=== PATIENT | female | born 1955 | race Caucasian/White ===

== ENCOUNTER 2016-02-10 12:49 | Outpatient (RCR) | payer MEDICARE ==
[2016-02-09 10:30] VITALS: BP 99/57
[~2016-02-10 12:49] MED LIST: ALDACTONE100 M1 PO; AMITRIPTYLINE H25 M2 PO; AMITRIPTYLINE H25 MG PO; CHLORHEXIDINE PO; COLACE 100100 MG/CAP PO; DOLOPHINE HCL10 MG PO; HCTZ/TRIAMTEREN1 CA2 PO; IRON325 M2 PO; LASIX80 M1 PO; LEADER NATUR1000 MCG PO; METHADONE H10 MG/TAB PO; NOVAPLUS FE TD; POTASSIUM CHLO10 ME6 PO; POTASSIUM CHLO20 ME3 PO; ROBAXIN-750750 MG PO; SLOW-MAG 106 MG1 ECT; VALIUM 5MG T5 MG/TAB PO
== END 2016-05-10 | disposition home or self-care (01) ==
LOC: PT
DX: Z47.1 Aftercare following joint replacement surgery (principal); Z96.642 Presence of left artificial hip joint; M17.0 Bilateral primary osteoarthritis of knee

== ENCOUNTER → 2016-06-27 | Outpatient (CLI) | payer MEDICARE, OTHER ==
[~2016-06-27] MED LIST changes: +AMITRIPTYLINE H75 M1 PO; +LASIX20 M1 PO
[2016-06-27 10:20] VITALS: BP 137/79
== END ==
LOC: AMSURD 10:03
DX: Z01.818 Encounter for other preprocedural examination (principal); E03.4 Atrophy of thyroid (acquired); Z51.81 Encounter for therapeutic drug level monitoring; M15.0 Primary generalized (osteo)arthritis; Z79.899 Other long term (current) drug therapy

== ENCOUNTER 2016-07-14 14:40 | Inpatient (IN) | payer MEDICARE, OTHER ==
[~2016-07-14 14:40] MED LIST changes: -AMITRIPTYLINE H75 M1 PO; -LASIX20 M1 PO
[2016-07-14 21:15] VITALS: BP 130/81
[2016-07-14 23:21] VITALS: BP 131/75
[2016-07-15] MEDS ORDERED: AMITRIPTYLINE H75 M1 PO (02:59)
[2016-07-15 03:06] VITALS: BP 111/65
[2016-07-15] MEDS ORDERED: LASIX20 M1 PO (03:13)
[2016-07-15 06:32] VITALS: BP 105/60
[2016-07-15 18:10] VITALS: BP 122/69
[2016-07-16 06:33] VITALS: BP 112/53
[2016-07-16 18:31] VITALS: BP 111/68
[2016-07-17 06:22] VITALS: BP 109/60
[2016-07-17 18:10] VITALS: BP 127/66
[2016-07-18 06:24] VITALS: BP 115/59
[2016-07-18 17:57] VITALS: BP 149/85
[2016-07-19 06:33] VITALS: BP 107/64
[2016-07-19 18:20] VITALS: BP 121/77
[2016-07-20 06:39] VITALS: BP 119/65
[2016-07-20 18:30] VITALS: BP 121/65
[2016-07-21 06:32] VITALS: BP 126/71
== END 2016-07-21 13:54 | disposition home or self-care (01) | DRG 560 ==
LOC: MED/SURG 14:40
PROVIDERS: ADMIT Family Medicine
DX: Z47.1 Aftercare following joint replacement surgery (principal); Z96.651 Presence of right artificial knee joint; R53.81 Other malaise; F41.9 Anxiety disorder, unspecified; E78.5 Hyperlipidemia, unspecified; I73.00 Raynaud's syndrome without gangrene; K59.00 Constipation, unspecified; D68.2 Hereditary deficiency of other clotting factors; G89.29 Other chronic pain; Z79.891 Long term (current) use of opiate analgesic

== ENCOUNTER 2016-10-04 11:00 | Outpatient (RCR) | payer MEDICARE, OTHER ==
[~2016-10-04 11:00] MED LIST changes: +AMITRIPTYLINE H75 M1 PO; +LASIX20 M1 PO
== END 2016-10-22 | disposition home or self-care (01) ==
LOC: PT
DX: Z47.1 Aftercare following joint replacement surgery (principal); Z96.642 Presence of left artificial hip joint; M17.0 Bilateral primary osteoarthritis of knee

== ENCOUNTER → 2016-10-26 | Outpatient (CLI) | payer MEDICARE, OTHER | LOC: RAD 10:24 | DX: M54.5 Low back pain (principal); M41.9 Scoliosis, unspecified ==

== ENCOUNTER → 2016-12-28 | Outpatient (CLI) | payer MEDICARE, OTHER | LOC: RAD 08:48 | DX: S92.415A Nondisplaced fracture of proximal phalanx of left great toe, initial encounter for closed fracture (principal); X58.XXXA Exposure to other specified factors, initial encounter ==

== ENCOUNTER → 2017-01-25 | Outpatient (CLI) | payer MEDICARE, OTHER ==
[2017-01-01 10:11] VITALS: BP 126/73
== END ==
LOC: LAB 17:25
DX: L03.032 Cellulitis of left toe (principal)

== ENCOUNTER 2017-02-07 06:33 | Outpatient (RCR) | payer MEDICARE, OTHER ==
[~2017-02-07] VITALS: Ht 165.1 cm; Wt 59.1 kg
[2017-02-07 06:41] VITALS: BP 123/77
[2017-02-07] MEDS ORDERED: COLACE100 M1 PO (06:51)
[2017-02-07 07:15] VITALS: BP 112/69
[2017-02-07 14:49] VITALS: BP 112/68
[2017-02-07 15:25] VITALS: BP 109/62
[2017-02-07 22:23] VITALS: BP 129/97
[2017-02-08 07:35] VITALS: BP 141/78
[2017-02-08 14:29] VITALS: BP 106/73
[2017-02-08 15:10] VITALS: BP 90/50
[2017-02-08 22:25] VITALS: BP 109/69
[2017-02-08 23:00] VITALS: BP 107/56
[2017-02-09 06:25] VITALS: BP 157/90
[2017-02-09 06:55] VITALS: BP 154/89
[2017-02-09 14:19] VITALS: BP 122/78
[2017-02-09 15:08] VITALS: BP 101/60
[2017-02-09 22:22] VITALS: BP 110/64
[2017-02-09 22:55] VITALS: BP 113/71
[2017-02-10 06:20] VITALS: BP 158/89
--- NOTE | 2017-02-10 06:42 | NUR ---
PATIENT REQUESTS A SNACK OF PEANUT BUTTER AND ALEIDA CRACKERS, AND IT IS PROVIDED.
[2017-02-10 07:00] VITALS: BP 89/55
[2017-02-10 14:26] VITALS: BP 135/100
[2017-02-10 15:01] VITALS: BP 145/68
[2017-02-10 22:20] VITALS: BP 127/86
[2017-02-10 22:50] VITALS: BP 124/85
[2017-02-11 06:20] VITALS: BP 127/77
[2017-02-11 06:50] VITALS: BP 147/67
[2017-02-11 14:30] VITALS: BP 122/58
[2017-02-11 15:10] VITALS: BP 119/66
[2017-02-11 22:30] VITALS: BP 96/73
[2017-02-11 23:04] VITALS: BP 114/76
[2017-02-12 06:15] VITALS: BP 147/91
[2017-02-12 06:57] VITALS: BP 98/54
[2017-02-12 14:30] VITALS: BP 112/70; BP 156/83
[2017-02-12 22:30] VITALS: BP 121/78
[2017-02-12 23:05] VITALS: BP 127/79
[2017-02-13 08:36] VITALS: BP 124/90
[2017-02-13 08:37] VITALS: BP 112/78
[2017-02-13 14:33] VITALS: BP 141/88
[2017-02-13 15:05] VITALS: BP 138/95
[2017-02-13 22:50] VITALS: BP 115/74
[2017-02-13 23:25] VITALS: BP 113/71
[2017-02-14 06:20] VITALS: BP 113/84
[2017-02-14 06:50] VITALS: BP 123/87
[2017-02-14 14:18] VITALS: BP 128/89
[2017-02-14 14:57] VITALS: BP 128/88
[2017-02-14 22:10] VITALS: BP 114/48
[2017-02-14 22:52] VITALS: BP 93/35
[2017-02-15 06:20] VITALS: BP 114/71
[2017-02-15 06:53] VITALS: BP 111/55
[2017-02-15 14:20] VITALS: BP 114/81
[2017-02-15 22:30] VITALS: BP 119/80
[2017-02-15 23:00] VITALS: BP 122/69
[2017-02-16 06:22] VITALS: BP 104/70
[2017-02-16 07:03] VITALS: BP 98/66
[2017-02-16 14:28] VITALS: BP 122/49
[2017-02-16 22:25] VITALS: BP 140/91
[2017-02-16 22:58] VITALS: BP 141/83
[2017-02-17 07:32] VITALS: BP 146/98
[2017-02-17 07:50] VITALS: BP 110/73
[2017-02-17 14:26] VITALS: BP 134/101
[2017-02-17 15:00] VITALS: BP 126/78
[2017-02-17 22:25] VITALS: BP 146/96
[2017-02-17 23:05] VITALS: BP 100/75
[2017-02-18 06:40] VITALS: BP 115/70
[2017-02-18 07:24] VITALS: BP 118/52
[2017-02-18 13:24] VITALS: BP 116/68
[2017-02-18 22:30] VITALS: BP 104/70
[2017-02-18 23:02] VITALS: BP 101/64
[2017-02-19 06:22] VITALS: BP 119/69
[2017-02-19 06:59] VITALS: BP 117/63
[2017-02-19 14:32] VITALS: BP 138/91
[2017-02-19 15:05] VITALS: BP 110/78
[2017-02-19 22:40] VITALS: BP 139/73
[2017-02-20 06:15] VITALS: BP 126/74
[2017-02-20 07:01] VITALS: BP 117/70
[2017-02-20 14:28] VITALS: BP 137/92
[2017-02-20 15:05] VITALS: BP 108/70
[2017-02-20 22:36] VITALS: BP 110/70
[2017-02-20 23:05] VITALS: BP 98/66
[2017-02-21 06:20] VITALS: BP 127/77
--- NOTE | 2017-02-21 06:25 | NUR ---
PATIENT INDICATES THIS IS HER LAST DOSE UNTIL SHE FOLLOWS UP WITH DR. RODRIGUEZ ON SUNDAY. PATIENT STATES SHE WOULD LIKE HER PICC LEFT IN UNTIL THAT MEETING, AND DR. RODRIGUEZ WILL DECIDE IF HE NEEDS TO CONTINUE THE ANTIBIOTICS AGAIN. PATIENT INSTRUCTED TO COME OVER AND DISCUSS DR. RODRIGUEZ'S RECOMMENDATIONS WITH THE OUTPATIENT NURSE THAT DAY, AND A PLAN OF CARE WILL BE DEVELOPED, WELL A SCHEDULE FOR FUTURE DRESSING CHANGES/FLUSHES IF NEEDED, OR IF THE PICC LINE WILL NEED TO BE DC'D. PATIENT STATES SHE HAS ALSO NOT BEEN FOLLOWING THE PEROXIDE DRESSING CHANGES PER DR. RODRIGUEZ'S RECOMMENDATIONS, AND ACTUALLY LETTING THE WOUND BED DRY OUT. PATIENT REPORTS SHE HAS GOTTEN MUCH BETTER WOUND HEALING RESULTS FROM THIS METHOD.
[2017-02-21 06:50] VITALS: BP 120/70
[2017-02-23 14:30] VITALS: BP 127/76
== END 2017-02-23 16:00 | disposition home or self-care (01) ==
LOC: AMSURD 06:33
DX: L03.90 Cellulitis, unspecified (principal); Z45.2 Encounter for adjustment and management of vascular access device; Z48.00 Encounter for change or removal of nonsurgical wound dressing
CPT/HCPCS: J1644; J2185

== ENCOUNTER → 2017-06-19 | Outpatient (CLI) | payer MEDICARE, OTHER ==
[~2017-06-19] MED LIST changes: +COLACE100 M1 PO; +FENTANYL1 EAC3 TD
== END ==
LOC: PT 11:00
DX: M16.11 Unilateral primary osteoarthritis, right hip (principal)

== ENCOUNTER → 2017-06-25 | Outpatient (CLI) | payer MEDICARE, OTHER ==
[~2017-06-25] VITALS: Ht 160 cm; Wt 65.9 kg
[2017-06-25 11:50] LABS: EOS # 0.1 (0.04-0.40); EOS % 1.7 % (1.0-5.0); HEMATOCRIT 38.1 % (37.0-47.0); HEMOGLOBIN 11.8 g/dL (12.5-16.0); MEAN CELL VOLUME 91 fl (78-100); MEAN CORPUSCULAR HEMOGLOBIN 28 pg (27-31); MEAN CORPUSCULAR HGB CONC 31 g/dL (33-37); MEAN PLATELET VOLUME 8.5 fl (7.4-10.4); MONO # 0.5 (0.20-0.80); NEU # 3.6 (1.40-6.50); PLATELET COUNT 302 K/mm3 (130-400); RED BLOOD COUNT 4.18 M/mm3 (4.10-5.30); RED CELL DISTRIBUTION WIDTH 12.9 % (11.5-14.5); WHITE BLOOD COUNT 5.2 K/mm3 (4.8-10.8)
[2017-06-25 12:06] LABS: ALBUMIN 3.5 g/dL (3.5-5.0); BUN/CREATININE RATIO 21.3 (6.0-26.0); CALCIUM 8.8 mg/dL (8.4-10.2); POTASSIUM 4.4 mmol/L (3.6-5.0); TOTAL BILIRUBIN 0.2 mg/dL (0.2-1.3); TOTAL PROTEIN 6.7 g/dL (6.3-8.2)
[2017-06-25 12:08] LABS: PARTIAL THROMBOPLASTIN TIME 25.5 SECONDS (21.0-32.0); PROTHROMBIN TIME 10.2 SECONDS (9.0-12.0)
[2017-06-25 12:14] LABS: URINE APPEARANCE HAZY; URINE BILIRUBIN NEGATIVE (NEGATIVE); URINE BLOOD NEGATIVE (NEGATIVE); URINE COLOR YELLOW; URINE GLUCOSE NEGATIVE (NEGATIVE); URINE KETONE NEGATIVE (NEGATIVE); URINE LEUKOCYTE ESTERASE 1+ (NEGATIVE); URINE NITRATE NEGATIVE (NEGATIVE); URINE PROTEIN(semi-quant) TRACE mg/dL (NEGATIVE); URINE UROBILINOGEN NORMAL (NORMAL)
[2017-06-25 12:28] VITALS: BP 120/72
== END ==
LOC: AMSURD 11:24
PROVIDERS: Internal Medicine
DX: Z01.818 Encounter for other preprocedural examination (principal); M15.0 Primary generalized (osteo)arthritis

== ENCOUNTER → 2017-07-02 | Outpatient (CLI) | payer MEDICARE, OTHER ==
[2017-06-25 12:28] VITALS: BP 120/72
[2017-07-02 16:52] LABS: URINE COLOR YELLOW
[2017-07-02 16:53] LABS: PH-URINE 5.5 (5.0 - 8.0); URINE APPEARANCE HAZY; URINE BILIRUBIN NEGATIVE (NEGATIVE); URINE BLOOD NEGATIVE (NEGATIVE); URINE GLUCOSE NEGATIVE (NEGATIVE); URINE KETONE 1+ (NEGATIVE); URINE LEUKOCYTE ESTERASE 1+ (NEGATIVE); URINE NITRATE NEGATIVE (NEGATIVE); URINE PROTEIN(semi-quant) TRACE mg/dL (NEGATIVE); URINE UROBILINOGEN NORMAL (NORMAL)
== END ==
LOC: LAB 15:42
PROVIDERS: Internal Medicine
DX: N30.00 Acute cystitis without hematuria (principal)

== ENCOUNTER → 2017-07-06 | Outpatient (CLI) | payer MEDICARE, OTHER ==
[2017-06-25 12:28] VITALS: BP 120/72
[2017-07-06 12:05] LABS: URINE APPEARANCE CLEAR; URINE COLOR YELLOW
[2017-07-06 12:06] LABS: URINE BILIRUBIN NEGATIVE (NEGATIVE); URINE GLUCOSE NEGATIVE (NEGATIVE); URINE KETONE NEGATIVE (NEGATIVE); URINE PROTEIN(semi-quant) TRACE mg/dL (NEGATIVE)
[2017-07-06 12:07] LABS: URINE BLOOD NEGATIVE (NEGATIVE); URINE LEUKOCYTE ESTERASE 1+ (NEGATIVE); URINE NITRATE NEGATIVE (NEGATIVE); URINE UROBILINOGEN NORMAL (NORMAL)
== END ==
LOC: LAB 10:40
PROVIDERS: Internal Medicine
DX: N39.0 Urinary tract infection, site not specified (principal); Z88.6 Allergy status to analgesic agent; Z88.1 Allergy status to other antibiotic agents

== ENCOUNTER 2017-09-17 11:00 | Outpatient (RCR) | payer MEDICARE, OTHER ==
[2017-06-25 12:28] VITALS: BP 120/72
== END 2017-10-15 | disposition home or self-care (01) ==
LOC: PT
DX: Z47.1 Aftercare following joint replacement surgery (principal); Z96.641 Presence of right artificial hip joint
CPT/HCPCS: G8978-GP; G8979-GP

== ENCOUNTER → 2018-01-10 | Outpatient (CLI) | payer MEDICARE, OTHER ==
[2017-06-25 12:28] VITALS: BP 120/72
[2018-01-10 12:45] LABS: ALBUMIN 4.3 g/dL (3.5-5.0); POTASSIUM 4.5 mmol/L (3.6-5.0); TOTAL BILIRUBIN 0.6 mg/dL (0.2-1.3); TOTAL PROTEIN 7.3 g/dL (6.3-8.2)
[2018-01-10 13:22] LABS: EOS # 0.1 (0.04-0.40); EOS % 2.5 % (1.0-5.0); HEMATOCRIT 40.9 % (37.0-47.0); LYMPH# 1.2 (1.50-4.00); MEAN CELL VOLUME 89 fl (78-100); MEAN CORPUSCULAR HEMOGLOBIN 28 pg (27-31); MEAN CORPUSCULAR HGB CONC 32 g/dL (33-37); MONO # 0.4 (0.20-0.80); NEU # 3.4 (1.40-6.50); PLATELET COUNT 294 K/mm3 (130-400); RED BLOOD COUNT 4.58 M/mm3 (4.10-5.30); RED CELL DISTRIBUTION WIDTH 13.1 % (11.5-14.5); WHITE BLOOD COUNT 5.1 K/mm3 (4.8-10.8)
[2018-01-10 14:28] LABS: ERYTHROCYTE SEDIMENTATION RATE 12 mm/hr (0-30)
== END ==
LOC: LAB 11:59
PROVIDERS: Internal Medicine
DX: E78.5 Hyperlipidemia, unspecified (principal); J84.10 Pulmonary fibrosis, unspecified; M85.80 Other specified disorders of bone density and structure, unspecified site

== ENCOUNTER → 2018-01-24 | Outpatient (CLI) | payer MEDICARE, OTHER ==
[2017-06-25 12:28] VITALS: BP 120/72
== END ==
LOC: MAMMO 08:26
DX: M81.0 Age-related osteoporosis without current pathological fracture (principal); Z12.31 Encounter for screening mammogram for malignant neoplasm of breast

== ENCOUNTER → 2018-01-24 | Outpatient (CLI) | payer MEDICARE, OTHER ==
[2017-06-25 12:28] VITALS: BP 120/72
== END ==
LOC: RAD 08:28 → MAMMO 09:15
DX: Z13.820 Encounter for screening for osteoporosis (principal)

== ENCOUNTER → 2018-05-30 | Outpatient (CLI) | payer MEDICARE, OTHER ==
[2017-06-25 12:28] VITALS: BP 120/72
[2018-05-30 11:52] LABS: EOS % 0.4 % (1.0-5.0); HEMATOCRIT 39.5 % (37.0-47.0); HEMOGLOBIN 12.3 g/dL (12.5-16.0); LYMPH# 0.9 (1.50-4.00); MEAN CELL VOLUME 88 fl (78-100); MEAN CORPUSCULAR HEMOGLOBIN 27 pg (27-31); MEAN CORPUSCULAR HGB CONC 31 g/dL (33-37); MEAN PLATELET VOLUME 8.3 fl (7.4-10.4); MONO # 0.3 (0.20-0.80); NEU # 3.7 (1.40-6.50); PLATELET COUNT 308 K/mm3 (130-400); RED BLOOD COUNT 4.49 M/mm3 (4.10-5.30); RED CELL DISTRIBUTION WIDTH 12.3 % (11.5-14.5)
[2018-05-30 12:23] LABS: ALBUMIN 3.9 g/dL (3.5-5.0); CALCIUM 9.1 mg/dL (8.4-10.2); POTASSIUM 4.4 mmol/L (3.6-5.0); TOTAL BILIRUBIN 0.4 mg/dL (0.2-1.3); TOTAL PROTEIN 7.1 g/dL (6.3-8.2)
== END ==
LOC: LAB 11:33
PROVIDERS: Internal Medicine
DX: E78.5 Hyperlipidemia, unspecified (principal); M85.80 Other specified disorders of bone density and structure, unspecified site

== ENCOUNTER → 2018-06-20 | Outpatient (CLI) | payer MEDICARE, OTHER ==
[2017-06-25 12:28] VITALS: BP 120/72
== END ==
LOC: RAD 10:27
DX: M25.511 Pain in right shoulder (principal)

== ENCOUNTER → 2018-08-05 | Outpatient (CLI) | payer MEDICARE, OTHER ==
[2017-06-25 12:28] VITALS: BP 120/72
== END ==
LOC: LAB 14:45
DX: S81.802A Unspecified open wound, left lower leg, initial encounter (principal)

== ENCOUNTER → 2018-08-19 | Outpatient (CLI) | payer MEDICARE, OTHER ==
[2017-06-25 12:28] VITALS: BP 120/72
== END ==
LOC: LAB 13:32
DX: S81.802A Unspecified open wound, left lower leg, initial encounter (principal)

== ENCOUNTER 2018-09-23 11:30 | Outpatient (RCR) | payer MEDICARE, OTHER ==
[2017-06-25 12:28] VITALS: BP 120/72
== END 2018-11-03 | disposition still patient (30) ==
LOC: PT
DX: S81.802A Unspecified open wound, left lower leg, initial encounter (principal)

== ENCOUNTER → 2018-09-26 | Outpatient (CLI) | payer MEDICARE, OTHER ==
[2017-06-25 12:28] VITALS: BP 120/72
== END ==
LOC: RAD 13:33
DX: M19.012 Primary osteoarthritis, left shoulder (principal)

== ENCOUNTER → 2019-03-31 | Outpatient (CLI) | payer MEDICARE, OTHER ==
[2017-06-25 12:28] VITALS: BP 120/72
[2019-03-31 12:32] LABS: EOS # 0.1 (0.04-0.40); EOS % 2.4 % (1.0-5.0); HEMATOCRIT 40.7 % (37.0-47.0); HEMOGLOBIN 12.6 g/dL (12.5-16.0); LYMPH# 1.6 (1.50-4.00); MEAN CELL VOLUME 86 fl (78-100); MEAN CORPUSCULAR HEMOGLOBIN 27 pg (27-31); MEAN CORPUSCULAR HGB CONC 31 g/dL (33-37); MEAN PLATELET VOLUME 8.3 fl (7.4-10.4); MONO # 0.5 (0.20-0.80); NEU # 2.8 (1.40-6.50); PLATELET COUNT 321 K/mm3 (130-400); RED BLOOD COUNT 4.72 M/mm3 (4.10-5.30)
[2019-03-31 13:43] LABS: ERYTHROCYTE SEDIMENTATION RATE 23 mm/hr (0-30)
[2019-03-31 13:44] LABS: ALBUMIN 4.2 g/dL (3.4-4.8); POTASSIUM 3.2 mmol/L (3.5-5.1)
[2019-03-31 13:46] LABS: CALCIUM 9.1 mg/dL (8.3-10.5)
[2019-03-31 13:47] LABS: TOTAL PROTEIN 7.6 g/dL (6.2-8.1)
[2019-03-31 13:49] LABS: TOTAL BILIRUBIN 0.3 mg/dL (0.2-1.2)
== END ==
LOC: LAB 12:13
PROVIDERS: Internal Medicine
DX: E46 Unspecified protein-calorie malnutrition (principal); L03.90 Cellulitis, unspecified; L97.929 Non-pressure chronic ulcer of unspecified part of left lower leg with unspecified severity; E74.39 Other disorders of intestinal carbohydrate absorption; R73.02 Impaired glucose tolerance (oral)

== ENCOUNTER → 2019-04-29 | Outpatient (CLI) | payer MEDICARE, OTHER ==
[2017-06-25 12:28] VITALS: BP 120/72
== END ==
LOC: LAB 16:54
PROVIDERS: Internal Medicine
DX: L97.929 Non-pressure chronic ulcer of unspecified part of left lower leg with unspecified severity (principal); L03.90 Cellulitis, unspecified; K90.9 Intestinal malabsorption, unspecified

== ENCOUNTER → 2019-05-27 | Outpatient (CLI) | payer MEDICARE, OTHER ==
[2017-06-25 12:28] VITALS: BP 120/72
== END ==
LOC: RAD 16:09
DX: M41.86 Other forms of scoliosis, lumbar region (principal); M47.816 Spondylosis without myelopathy or radiculopathy, lumbar region

== ENCOUNTER 2019-07-04 15:00 | Outpatient (RCR) | payer MEDICARE, OTHER ==
[2017-06-25 12:28] VITALS: BP 120/72
== END 2019-09-28 | disposition still patient (30) ==
LOC: PT
DX: M54.5 Low back pain (principal); M25.512 Pain in left shoulder

== ENCOUNTER 2020-10-27 14:09 | Emergency (ER) | payer MEDICARE, OTHER ==
[~2020-10-27 14:09] MED LIST changes: -CELEBREX 200MG200 MG PO; -CHLORHEXIDINE FL1 ML; -DOCUSATE SODIUM1 TA3 PO; -GENTAMICIN SULFA TP; -MAGNESIUM CHLOR70 MG PO; -METHADONE HYDRO10 MG PO; -ROBAXIN 75750 MG/TA1 PO; -TRIAMTERENE AND1 CAP PO
[2020-10-27 14:54] LABS: HEMATOCRIT 34.6 % (37.0-47.0); HEMOGLOBIN 11.3 g/dL (12.5-16.0); MEAN CELL VOLUME 82 fl (78-100); MEAN CORPUSCULAR HEMOGLOBIN 27 pg (27-31); MEAN CORPUSCULAR HGB CONC 33 g/dL (33-37); MEAN PLATELET VOLUME 9.3 fl (7.4-10.4); PLATELET COUNT 191 K/mm3 (130-400); RED BLOOD COUNT 4.21 M/mm3 (4.10-5.30); RED CELL DISTRIBUTION WIDTH 12.9 % (11.5-14.5); WHITE BLOOD COUNT 2.8 K/mm3 (4.8-10.8)
[2020-10-27 15:06] LABS: ALBUMIN 3.1 g/dL (3.4-4.8); POTASSIUM 3.5 mmol/L (3.5-5.1); SODIUM 132 mmol/L (136-145)
[2020-10-27 15:07] LABS: CALCIUM 7.8 mg/dL (8.3-10.5)
[2020-10-27 15:08] LABS: GLUCOSE 98 mg/dL (65-105); TOTAL PROTEIN 6.3 g/dL (6.2-8.1)
[2020-10-27 15:10] LABS: CARBON DIOXIDE 27 mmol/L (23-31); TOTAL BILIRUBIN 0.5 mg/dL (0.2-1.2)
[2020-10-27 15:14] LABS: AST-SGOT 52 U/L (5-34)
[2020-10-27 15:15] LABS: ALT/SGPT 28 U/L (0-55)
[2020-10-27 15:32] LABS: TROPONIN-I < 0.03 ng/mL (<0.030)
[2020-10-27 15:46] LABS: LYMPHOCYTE 16 % (20-51); MONOCYTE 9 % (3-10); NEUTROPHILS 75 % (42-75)
[2020-10-27] MEDS ORDERED: AMITRIPTYLINE H25 M2 PO (16:35)
[2020-10-27] MEDS ORDERED: CELEBREX 200MG200 MG PO (16:38)
[2020-10-27] MEDS ORDERED: CHLORHEXIDINE FL1 ML (16:39)
[2020-10-27] MEDS ORDERED: VALIUM 5MG T5 MG/TAB PO (16:40)
[2020-10-27] MEDS ORDERED: GENTAMICIN SULFA TP (16:40)
[2020-10-27] MEDS ORDERED: MAGNESIUM CHLOR70 MG PO (16:41)
[2020-10-27] MEDS ORDERED: ROBAXIN 75750 MG/TA1 PO (16:42)
[2020-10-27] MEDS ORDERED: METHADONE HYDRO10 MG PO (16:42)
[2020-10-27] MEDS ORDERED: DOCUSATE SODIUM1 TA3 PO (16:43)
[2020-10-27] MEDS ORDERED: ALDACTONE100 M1 PO (16:44)
[2020-10-27] MEDS ORDERED: TRIAMTERENE AND1 CAP PO (16:45)
[2020-10-27 17:23] VITALS: BP 116/72
== END 2020-10-27 17:35 | disposition home or self-care (01) ==
LOC: ED 14:09
PROVIDERS: Physician Assistant
DX: U07.1 COVID-19 (principal); J12.82 Pneumonia due to coronavirus disease 2019; D66 Hereditary factor VIII deficiency; F41.9 Anxiety disorder, unspecified; I10 Essential (primary) hypertension; G89.4 Chronic pain syndrome; Z88.6 Allergy status to analgesic agent; Z88.1 Allergy status to other antibiotic agents; Z79.899 Other long term (current) drug therapy
CPT/HCPCS: J0456; J1100; J7050

== ENCOUNTER → 2020-10-27 | Outpatient (CLI) | payer MEDICARE, OTHER ==
[~2020-10-27] MED LIST changes: +CELEBREX 200MG200 MG PO; +CHLORHEXIDINE FL1 ML; +DOCUSATE SODIUM1 TA3 PO; +GENTAMICIN SULFA TP; +MAGNESIUM CHLOR70 MG PO; +METHADONE HYDRO10 MG PO; +ROBAXIN 75750 MG/TA1 PO; +TRIAMTERENE AND1 CAP PO
== END ==
LOC: LAB 11:42
DX: U07.1 COVID-19 (principal)

== ENCOUNTER → 2020-12-24 | Outpatient (CLI) | payer MEDICARE, OTHER ==
[~2020-12-24] MED LIST changes: +CELEBREX 200MG200 MG PO; +CHLORHEXIDINE FL1 ML; +DOCUSATE SODIUM1 TA3 PO; +GENTAMICIN SULFA TP; +MAGNESIUM CHLOR70 MG PO; +METHADONE HYDRO10 MG PO; +ROBAXIN 75750 MG/TA1 PO; +TRIAMTERENE AND1 CAP PO
== END ==
LOC: VAS 11:36
DX: R22.41 Localized swelling, mass and lump, right lower limb (principal)

== ENCOUNTER → 2021-03-04 | Outpatient (CLI) | payer MEDICARE, OTHER ==
[2021-03-04 15:19] LABS: BASO # 0.03 K/mm3 (0.02-0.10); EOS # 0.04 K/mm3 (0.04-0.40); EOS % 0.7 % (1.0-5.0); HEMOGLOBIN 12.2 g/dL (12.5-16.0); LYMPH# 1.36 K/mm3 (1.50-4.00); MEAN CELL VOLUME 86 fl (78-100); MEAN CORPUSCULAR HEMOGLOBIN 28 pg (27-31); MEAN CORPUSCULAR HGB CONC 32 g/dL (33-37); MEAN PLATELET VOLUME 8.6 fl (7.4-10.4); MONO # 0.45 K/mm3 (0.20-0.80); NEU # 3.74 K/mm3 (1.40-6.50); PLATELET COUNT 303 K/mm3 (130-400); RED BLOOD COUNT 4.44 M/mm3 (4.10-5.30); RED CELL DISTRIBUTION WIDTH 12.5 % (11.5-14.5); WHITE BLOOD COUNT 5.6 K/mm3 (4.8-10.8)
[2021-03-04 17:25] LABS: ERYTHROCYTE SEDIMENTATION RATE 33 mm/hr (0-30)
== END ==
LOC: LAB 14:57
PROVIDERS: Internal Medicine
DX: F41.9 Anxiety disorder, unspecified (principal); K90.9 Intestinal malabsorption, unspecified; E78.2 Mixed hyperlipidemia

== ENCOUNTER → 2021-03-14 | Outpatient (CLI) | payer MEDICARE, OTHER ==
[2021-03-14 15:55] LABS: BASO # 0.01 K/mm3 (0.02-0.10); EOS # 0.07 K/mm3 (0.04-0.40); HEMATOCRIT 36.5 % (37.0-47.0); HEMOGLOBIN 11.2 g/dL (12.5-16.0); LYMPH# 1.24 K/mm3 (1.50-4.00); MEAN CELL VOLUME 87 fl (78-100); MEAN CORPUSCULAR HEMOGLOBIN 27 pg (27-31); MEAN CORPUSCULAR HGB CONC 31 g/dL (33-37); MEAN PLATELET VOLUME 8.1 fl (7.4-10.4); MONO # 0.38 K/mm3 (0.20-0.80); NEU # 5.11 K/mm3 (1.40-6.50); PLATELET COUNT 267 K/mm3 (130-400); RED BLOOD COUNT 4.21 M/mm3 (4.10-5.30); RED CELL DISTRIBUTION WIDTH 13.1 % (11.5-14.5); WHITE BLOOD COUNT 6.8 K/mm3 (4.8-10.8)
[2021-03-14 16:08] LABS: POTASSIUM 4.2 mmol/L (3.5-5.1)
[2021-03-14 16:09] LABS: CALCIUM 8.7 mg/dL (8.3-10.5)
[2021-03-14 16:10] LABS: TOTAL PROTEIN 7.2 g/dL (6.2-8.1)
[2021-03-14 16:12] LABS: TOTAL BILIRUBIN 0.2 mg/dL (0.2-1.2)
[2021-03-14 16:13] LABS: PARTIAL THROMBOPLASTIN TIME 24.1 SECONDS (21.0-32.0); PROTHROMBIN TIME 11.3 SECONDS (9.0-12.0)
== END ==
LOC: LAB 15:36
PROVIDERS: Internal Medicine
DX: Z01.818 Encounter for other preprocedural examination (principal)

== ENCOUNTER → 2021-10-03 | Outpatient (CLI) | payer MEDICARE, OTHER ==
[2021-10-03 10:27] LABS: BASO # 0.03 K/mm3 (0.02-0.10); EOS # 0.16 K/mm3 (0.04-0.40); EOS % 3.1 % (1.0-5.0); HEMATOCRIT 34.6 % (37.0-47.0); HEMOGLOBIN 10.8 g/dL (12.5-16.0); LYMPH# 1.38 K/mm3 (1.50-4.00); MEAN CELL VOLUME 87 fl (78-100); MEAN CORPUSCULAR HEMOGLOBIN 27 pg (27-31); MEAN CORPUSCULAR HGB CONC 31 g/dL (33-37); MEAN PLATELET VOLUME 8.5 fl (7.4-10.4); MONO # 0.43 K/mm3 (0.20-0.80); NEU # 3.18 K/mm3 (1.40-6.50); PLATELET COUNT 229 K/mm3 (130-400); RED BLOOD COUNT 3.97 M/mm3 (4.10-5.30); RED CELL DISTRIBUTION WIDTH 13.2 % (11.5-14.5); WHITE BLOOD COUNT 5.2 K/mm3 (4.8-10.8)
[2021-10-03 10:32] LABS: ALBUMIN 3.8 g/dL (3.4-4.8); POTASSIUM 3.8 mmol/L (3.5-5.1)
[2021-10-03 10:33] LABS: CALCIUM 8.8 mg/dL (8.3-10.5)
[2021-10-03 10:34] LABS: TOTAL PROTEIN 6.4 g/dL (6.2-8.1)
[2021-10-03 10:36] LABS: TOTAL BILIRUBIN 0.3 mg/dL (0.2-1.2)
[2021-10-03 11:36] LABS: ERYTHROCYTE SEDIMENTATION RATE 25 mm/hr (0-30)
== END ==
LOC: LAB 10:01
PROVIDERS: Internal Medicine
DX: Z12.11 Encounter for screening for malignant neoplasm of colon (principal); Z12.31 Encounter for screening mammogram for malignant neoplasm of breast; K90.9 Intestinal malabsorption, unspecified; E78.2 Mixed hyperlipidemia; F41.9 Anxiety disorder, unspecified; M19.019 Primary osteoarthritis, unspecified shoulder; G56.02 Carpal tunnel syndrome, left upper limb; M41.86 Other forms of scoliosis, lumbar region; M47.816 Spondylosis without myelopathy or radiculopathy, lumbar region; G89.29 Other chronic pain; G47.01 Insomnia due to medical condition; I35.0 Nonrheumatic aortic (valve) stenosis

== ENCOUNTER → 2021-10-12 | Outpatient (CLI) | payer MEDICARE, OTHER | LOC: MAMMO 12:09 | DX: Z12.31 Encounter for screening mammogram for malignant neoplasm of breast (principal) ==

== ENCOUNTER → 2021-10-12 | Outpatient (CLI) | payer MEDICARE, OTHER | LOC: VAS 12:08 → RAD 13:00 → VAS 13:00 | DX: I35.0 Nonrheumatic aortic (valve) stenosis (principal) ==

== ENCOUNTER → 2021-10-31 | Outpatient (CLI) | payer MEDICARE, OTHER ==
[2021-10-31 19:34] LABS: BASO # 0.02 K/mm3 (0.02-0.10); EOS # 0.24 K/mm3 (0.04-0.40); EOS % 4.5 % (1.0-5.0); HEMATOCRIT 35.7 % (37.0-47.0); HEMOGLOBIN 11.2 g/dL (12.5-16.0); LYMPH# 1.99 K/mm3 (1.50-4.00); MEAN CELL VOLUME 85 fl (78-100); MEAN CORPUSCULAR HEMOGLOBIN 27 pg (27-31); MEAN CORPUSCULAR HGB CONC 31 g/dL (33-37); MEAN PLATELET VOLUME 8.6 fl (7.4-10.4); MONO # 0.56 K/mm3 (0.20-0.80); NEU # 2.56 K/mm3 (1.40-6.50); PLATELET COUNT 265 K/mm3 (130-400); RED BLOOD COUNT 4.18 M/mm3 (4.10-5.30); RED CELL DISTRIBUTION WIDTH 12.7 % (11.5-14.5); WHITE BLOOD COUNT 5.4 K/mm3 (4.8-10.8)
[2021-10-31 19:43] LABS: ALBUMIN 3.9 g/dL (3.4-4.8); POTASSIUM 3.8 mmol/L (3.5-5.1)
[2021-10-31 19:44] LABS: CALCIUM 9.1 mg/dL (8.3-10.5)
[2021-10-31 19:47] LABS: TOTAL BILIRUBIN 0.3 mg/dL (0.2-1.2)
[2021-10-31 20:13] LABS: TOTAL PROTEIN 7.5 g/dL (6.2-8.1)
[2021-10-31 20:36] LABS: D-DIMER 1.29 mg/L FEU (0.15-0.50)
== END ==
LOC: LAB 19:21
PROVIDERS: Nurse Practitioner Family
DX: M79.89 Other specified soft tissue disorders (principal)

== ENCOUNTER 2022-02-15 13:55 | Outpatient (RCR) | payer MEDICARE, OTHER | END 2022-03-15 | disposition still patient (30) | LOC: PT | DX: Z96.611 Presence of right artificial shoulder joint (principal) ==

== ENCOUNTER → 2023-02-09 | Outpatient (CLI) | payer MEDICARE, OTHER ==
[2023-02-09 17:58] LABS: URINE APPEARANCE HAZY; URINE BILIRUBIN NEGATIVE (NEGATIVE); URINE BLOOD TRACE (NEGATIVE); URINE COLOR YELLOW; URINE GLUCOSE NEGATIVE (NEGATIVE); URINE KETONE NEGATIVE (NEGATIVE); URINE LEUKOCYTE ESTERASE 2+ (NEGATIVE); URINE NITRATE NEGATIVE (NEGATIVE); URINE PROTEIN(semi-quant) TRACE (NEGATIVE); URINE UROBILINOGEN NORMAL (NORMAL)
[2023-02-09 17:59] LABS: URINE MUCUS PRESENT (NOT PRESENT)
[2023-02-09 18:00] LABS: URINE WBC 31-50 /hpf (0-3)
== END ==
LOC: LAB 17:29
PROVIDERS: Internal Medicine
DX: Z01.818 Encounter for other preprocedural examination (principal); K90.9 Intestinal malabsorption, unspecified; M54.16 Radiculopathy, lumbar region; M48.062 Spinal stenosis, lumbar region with neurogenic claudication

== ENCOUNTER → 2023-02-09 | Outpatient (CLI) | payer MEDICARE, OTHER ==
[2023-02-09 11:51] LABS: ALBUMIN 4.1 g/dL (3.4-4.8)
[2023-02-09 11:53] LABS: CALCIUM 8.9 mg/dL (8.3-10.5)
[2023-02-09 11:54] LABS: TOTAL PROTEIN 7.1 g/dL (6.2-8.1)
[2023-02-09 11:56] LABS: TOTAL BILIRUBIN 0.3 mg/dL (0.2-1.2)
[2023-02-09 12:00] LABS: MAGNESIUM 1.89 mg/dL (1.60-2.60)
[2023-02-09 12:26] LABS: BASO # 0.03 K/mm3 (0.02-0.10); HEMATOCRIT 37.4 % (37.0-47.0); HEMOGLOBIN 11.2 g/dL (12.5-16.0); LYMPH# 1.32 K/mm3 (1.50-4.00); MEAN CELL VOLUME 83 fl (78-100); MEAN CORPUSCULAR HEMOGLOBIN 25 pg (27-31); MEAN CORPUSCULAR HGB CONC 30 g/dL (33-37); MEAN PLATELET VOLUME 8.7 fl (7.4-10.4); MONO # 0.44 K/mm3 (0.20-0.80); NEU # 3.22 K/mm3 (1.40-6.50); PLATELET COUNT 270 K/mm3 (130-400); RED BLOOD COUNT 4.53 M/mm3 (4.10-5.30); RED CELL DISTRIBUTION WIDTH 14.1 % (11.5-14.5); WHITE BLOOD COUNT 5.1 K/mm3 (4.8-10.8)
[2023-02-09 13:03] LABS: URINE APPEARANCE HAZY; URINE BILIRUBIN NEGATIVE (NEGATIVE); URINE BLOOD NEGATIVE (NEGATIVE); URINE COLOR YELLOW; URINE GLUCOSE NEGATIVE (NEGATIVE); URINE KETONE NEGATIVE (NEGATIVE); URINE LEUKOCYTE ESTERASE 2+ (NEGATIVE); URINE NITRATE NEGATIVE (NEGATIVE); URINE PROTEIN(semi-quant) TRACE (NEGATIVE); URINE UROBILINOGEN NORMAL (NORMAL)
== END ==
LOC: RAD 11:33
PROVIDERS: Internal Medicine
DX: Z01.811 Encounter for preprocedural respiratory examination (principal); M54.16 Radiculopathy, lumbar region; M48.062 Spinal stenosis, lumbar region with neurogenic claudication; K90.9 Intestinal malabsorption, unspecified; R00.1 Bradycardia, unspecified

== ENCOUNTER → 2023-09-27 | Outpatient (CLI) | payer MEDICARE, OTHER ==
[2023-09-27 11:11] LABS: BASO # 0.01 K/mm3 (0.02-0.10); EOS # 0.05 K/mm3 (0.04-0.40); EOS % 0.8 % (1.0-5.0); HEMATOCRIT 36.8 % (37.0-47.0); HEMOGLOBIN 10.6 g/dL (12.5-16.0); LYMPH# 0.98 K/mm3 (1.50-4.00); MEAN CELL VOLUME 83 fl (78-100); MEAN CORPUSCULAR HEMOGLOBIN 24 pg (27-31); MEAN CORPUSCULAR HGB CONC 29 g/dL (33-37); MEAN PLATELET VOLUME 8.6 fl (7.4-10.4); MONO # 0.41 K/mm3 (0.20-0.80); NEU # 5.06 K/mm3 (1.40-6.50); PLATELET COUNT 267 K/mm3 (130-400); RED BLOOD COUNT 4.44 M/mm3 (4.10-5.30); RED CELL DISTRIBUTION WIDTH 14.6 % (11.5-14.5); WHITE BLOOD COUNT 6.5 K/mm3 (4.8-10.8)
[2023-09-27 11:17] LABS: CALCIUM 9.1 mg/dL (8.3-10.5)
[2023-09-27 11:18] LABS: TOTAL PROTEIN 7.2 g/dL (6.2-8.1)
[2023-09-27 11:20] LABS: TOTAL BILIRUBIN 0.3 mg/dL (0.2-1.2)
[2023-09-27 11:25] LABS: MAGNESIUM 2.12 mg/dL (1.60-2.60)
== END ==
LOC: LAB 10:58
PROVIDERS: Internal Medicine
DX: E78.2 Mixed hyperlipidemia (principal); K90.9 Intestinal malabsorption, unspecified; R06.00 Dyspnea, unspecified

== ENCOUNTER → 2024-01-30 | Outpatient (CLI) | payer MEDICARE, OTHER | LOC: RAD 10:00 | DX: L97.922 Non-pressure chronic ulcer of unspecified part of left lower leg with fat layer exposed (principal) ==